=== PATIENT | male | born 1980 | race Hispanic/Latino ===

== ENCOUNTER 2023-01-03 21:21 | Emergency (ER) | payer SELFPAY ==
[~2023-01-03] VITALS: Ht 175.3 cm; Wt 66.7 kg
[2023-01-03] MEDS ORDERED: ASPIRIN 81 MG CHEW TAB PO ONE (21:30)
[2023-01-03 22:01] LABS: BASOPHILS % 0.3 % (0.0-1.0); EOSINOPHILS # (AUTO) 0.1 (0.0-0.4); EOSINOPHILS % 2.9 % (0.0-6.0); HEMATOCRIT 37.1 % (38.2-49.6); HEMOGLOBIN 12.5 g/dL (14.0-18.0); LYMPHOCYTES # (AUTO) 1.3 (1.0-3.2); LYMPHOCYTES % 33.7 % (18.0-39.1); MEAN CORPUSCULAR HEMOGLOBIN 30.3 pg (28-32); MEAN CORPUSCULAR HGB CONC 33.7 g/dL (31-35); MONOCYTES # (AUTO) 0.3 (0.2-0.8); MONOCYTES % 8.9 % (4.4-11.3); NEUTROPHILS # (AUTO) 2.1 (2.1-6.9); NEUTROPHILS % 54.2 % (38.7-80.0); PLATELET COUNT 149 x10e3/uL (140-360); RED BLOOD COUNT 4.12 x10e6/uL (4.3-5.7)
[2023-01-03 22:17] LABS: ALBUMIN 4.3 g/dL (3.5-5.0); ALBUMIN/GLOBULIN RATIO 1.3 (0.8-2.0); ANION GAP 11.2 mmol/L (8-16); CALCIUM 9.3 mg/dL (8.4-10.2); CREATININE, SERUM 0.82 mg/dL (0.72-1.25); POTASSIUM 4.2 mmol/L (3.5-5.1)
[2023-01-03 22:23] LABS: CREATINE KINASE MB 2.1 ng/mL (0-5.0)
[2023-01-03 23:37] LABS: CREATINE KINASE MB 1.8 ng/mL (0-5.0)
[2023-01-04 01:04] VITALS: BP 97/61; PULSE 67; RESP 16; TEMP 98.2; O2SAT 100
== END 2023-01-04 00:57 | disposition home or self-care (01) ==
LOC: ER 21:24
DX: R07.89 Other chest pain (principal); Z85.028 Personal history of other malignant neoplasm of stomach; Z98.84 Bariatric surgery status
CPT/HCPCS: 36415; 71045; 80053; 82550; 82553; 84484; 85025; 93005; 99284